=== PATIENT | male | born 1960 | race Hispanic/Latino ===

== ENCOUNTER 2020-09-28 20:41 | Emergency (ER) | payer SELFPAY ==
[~2020-09-28] VITALS: Ht 165.1 cm; Wt 93.2 kg
[2020-09-28] MEDS ORDERED: AVAPRO300 MG PO (20:54)
[2020-09-28] MEDS ORDERED: NAPROXEN500 MG PO (21:26)
[2020-09-28 21:40] VITALS: BP 175/82
== END 2020-09-28 21:40 | disposition home or self-care (01) | DRG 563 ==
LOC: ED 20:41
DX: S46.812A Strain of other muscles, fascia and tendons at shoulder and upper arm level, left arm, initial encounter (principal); I10 Essential (primary) hypertension; W01.0XXA Fall on same level from slipping, tripping and stumbling without subsequent striking against object, initial encounter; Y92.89 Other specified places as the place of occurrence of the external cause